=== PATIENT | female | born 1960 | race Two or more races ===

== ENCOUNTER 2021-11-23 15:44 | Outpatient (CLI) | payer OTHER, SELFPAY ==
--- NOTE | ~2021-11-23 | CT_ITS ---
EXAMINATION: CTA chest PE protocol DATE: 11/23/2021 17:09 INDICATION: Palpitations. Elevated d-dimer. TECHNIQUE: Computed tomography (CT) pulmonary angiogram of the chest was performed with 200 mL Omnipa que-350 intravenous contrast. Additional 3D reconstructions utilizing coronal maximum intensity proje ction (MIP) were performed. Automated exposure control and iterative reconstruction technique were em ployed. The dose-length product was 199.77 mGy-cm. COMPARISON: CT abdomen and pelvis dated 04/02/2009 FINDINGS: Excellent contrast opacification of the pulmonary arteries. There is mild streak artifact from dense contrast in the superior vena cava and right atrium. No significant motion artifact yielding diagnost ic quality study which demonstrates no pulmonary embolism. 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 No pneumonia, pulmonary ed moriah, pleural effusion or pneumothorax. Heart size is normal. No pericardial effusion. Thoracic aorta is normal in caliber with no dissection. No pathologically enlarged thoracic lymphadenopathy. Small s liding-type hiatal hernia. Visualized upper abdomen is otherwise unremarkable. Mild to moderate thora cic and lower cervical spondylosis. IMPRESSION: 1. No pulmonary embolism or other acute cardiopulmonary disease. Reviewed, dictated and finalized at location A.
[2021-11-23 16:45] LABS: Estimated Glomerular Filt Rate > 60
== END 2021-11-23 15:45 | disposition home or self-care (01) ==
PROVIDERS: PCP Internal Medicine; Visit Provider Internal Medicine
DX: I48.91 Unspecified atrial fibrillation (principal); R79.89 Other specified abnormal findings of blood chemistry
CPT/HCPCS: 71275; Q9967

== ENCOUNTER 2021-12-05 09:11 | Outpatient (CLI) | payer OTHER, SELFPAY ==
--- NOTE | ~2021-12-05 | US_ITS ---
EXAMINATION: US venous doppler [facility] DATE: 12/05/2021 09:43 INDICATION: Lower limb swelling TECHNIQUE: Grayscale ultrasound images without and with compression and Doppler ultrasound images of the bilateral lower extremity veins were obtained. COMPARISON: None. FINDINGS: The visualized portions of right common femoral vein, profunda (deep) femoral vein, femoral vein, pop liteal vein, posterior tibial veins, peroneal veins and greater saphenous vein outflow are patent. The visualized portions of left common femoral vein, profunda femoral vein, femoral vein, popliteal v ein, posterior tibial veins, peroneal veins and greater saphenous vein outflow are patent. IMPRESSION: 1. No deep venous thrombosis in either lower limb. Reviewed, dictated and finalized at location B.
== END 2021-12-05 09:12 | disposition home or self-care (01) ==
LOC: ANHIMG 09:19
PROVIDERS: PCP Internal Medicine; Visit Provider Internal Medicine
DX: R79.89 Other specified abnormal findings of blood chemistry (principal); I48.91 Unspecified atrial fibrillation
CPT/HCPCS: 93970

== ENCOUNTER 2021-12-29 08:49 | Emergency (ER) | payer OTHER, SELFPAY ==
[2021-12-29] VITALS (17 sets, daily range): BP systolic 100–145; BP diastolic 60–79; PULSE 46–104; RESP 12–20; TEMP 36.6; O2SAT 95–100
--- NOTE | ~2021-12-29 | XR_ITS ---
EXAMINATION: XR chest 2V 12/29/2021 10:29 INDICATION: Chest palpitations. History of atrial fibrillation. PROCEDURE: 2 view chest COMPARISON: No prior studies for comparison. FINDINGS: The lungs are clear. The cardiomediastinal silhouette is within normal limits. There are no pleural effusions. There is no pneumothorax suspected. IMPRESSION: 1: NO ACUTE CARDIOPULMONARY DISEASE. Reviewed, dictated and finalized at location A.
--- NOTE | 2021-12-29 08:48 | ECG_ITS ---
Measurements Intervals [place] Rate: 63 P: 51 TX: 113 QRS: 45 QRSD: 80 T: 43 QT: 384 QTc: 396 Interpretive Statements SINUS RHYTHM WITH SHORT TX INTERVAL BORDERLINE ECG NO PREVIOUS ECG AVAILABLE FOR COMPARISON Electronically Signed On 12-29-2021 8:58:35 CDT by Ze Martinez D.O.
--- NOTE | 2021-12-29 08:49 | ED.ARRPALP ---
HPI - Arrhythmia/Palpitations General Chief Complaint: Arrhythmia/Palpitations Stated Complaint: palpitations and dizziness Source: patient Mode of arrival: EMS Limitations: no limitations History of Present Illness HPI narrative: Patient is a 61-year-old female with a history of breast cancer, osteoporosis, paroxysmal atrial fibrillation on chronic anticoagulation, presenting to the emergency department for evaluation of palpitations, lightheadedness and dizziness which is resolved at the time of assessment. Patient states that she awakened normally this morning and did her morning exercising. Patient then was preparing breakfast when she began to experience palpitations with associated lightheadedness and dizziness. Patient states that she felt like she may pass out but did not lose consciousness. EMS was contacted, patient was transported to our facility. On telemetry, patient was in normal sinus rhythm at the time of their arrival. Patient states that her palpitations lasted approximately 10 to 15 minutes. Patient denied any associated chest pain, shortness of breath. No focal weakness or numbness. Patient states she was seen at [facility] for atrial fibrillation with rapid ventricular rate, or decision was made to place the patient on chronic anticoagulation and metoprolol. Patient was then seen by her primary care physician and had an echocardiogram done which was normal. Patient was seen by Dr. Sanchez with cardiology and wore a 30-day event monitor which is notable for paroxysmal atrial fibrillation as well as episodic SVT. Patient has not taken her morning Metoprolol. No missed doses of her anticoagulation. Related Data Home Medications Medication Instructions Recorded Confirmed omega-3 fatty acids 1,000 mg 1,000 mg PO DAILY 03/03/20 11/24/21 capsule (Fish Oil Concentrate) sitagliptin phosphate 100 mg 100 mg PO DAILY 04/13/21 11/24/21 tablet (Januvia) famotidine 20 mg tablet (Pepcid AC) 20 mg PO DAILY 11/23/21 11/24/21 apixaban 5 mg tablet (Eliquis) 5 mg PO BID 11/24/21 11/24/21 Allergies Allergy/AdvReac Type Severity Reaction Status Date / Time No Known Allergies Allergy Mild Verified 11/23/21 14:07 Review of Systems Review of Systems: CONSTITUTIONAL: Denies fever, chills, or sweats. EYES: Denies visual changes, redness, or discharge. ENT: Denies rhinorrhea, congestion, sore throat, or otalgia. CARDIOVASCULAR: Denies chest pain,reports palpitations (resolved) RESPIRATORY: Denies cough or dyspnea. GASTROINTESTINAL: Denies abdominal pain, nausea, vomiting, or diarrhea. GENITOURINARY: Denies dysuria or hematuria. SKIN: Denies rash or itching. MUSCULOSKELETAL: Denies back pain, joint pain, or myalgia. NEUROLOGIC: Denies headache, numbness, or weakness. 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 EYES: PERRLA and EOMI. ENT: Nares clear, no rhinorrhea or epistaxis. Mucous membranes moist. NECK: Supple. CHEST: No respiratory distress, breathing even and non labored HEART: Regular rate, sinus rhythm ABDOM
[2021-12-29 09:21] LABS: Basophils Absolute Auto 0.1 K/mm3 (0.0-0.1); Basophils Percent Auto 0.8 % (0.2-1.2); Eosinophils Absolute Auto 0.1 K/mm3 (0-0.3); Eosinophils Percent Auto 1.4 % (0-4.4); Hemoglobin 11.9 g/dL (12.0-15.0); Immature Granulocyte Absolute 0.02 K/mm3 (0.00-0.031); Immature Granulocyte Percent A 0.3 % (0-0.5); Lymphocytes Absolute Auto 1.67 K/mm3 (0.9-3.2); Lymphocytes Percent Auto 28.2 % (18.3-44.2); Mean Corpuscular HGB Conc 31.3 g/dl (32-36); Mean Corpuscular Hemoglobin 25.4 pg (26-34); Mean Corpuscular Volume 81.2 fl (80-100); Mean Platelet Volume 11.9 fl (7.4-10.4); Monocytes Absolute Auto 0.4 K/mm3 (0.1-0.6); Monocytes Percent Auto 6.4 % (2.6-8.5); Neutrophils Absolute Auto 3.7 K/mm3 (1.3-6.7); Neutrophils Percent Auto 62.9 % (45.5-73.1); Platelet Count Result 196 k/mm3 (150-375); Red Blood Count 4.68 M/mm3 (4.2-5.4); Red Cell Distribution Width 14.4 % (11.5-14.5); White Blood Count 5.9 K/mm3 (4.5-10.0)
[2021-12-29] MEDS: SODIUM CHLORIDE 0.9% IV 1,000 ML 999 ML IV CONT (09:31)
[2021-12-29 09:33] LABS: INR 1.2; Prothrombin Time 14.6 Seconds (11.1-14.7)
[2021-12-29 09:34] LABS: Partial Thromboplastin Time 33.4 SECONDS (22.3-36.8); Phosphorus 3.1 mg/dL (2.5-4.5)
[2021-12-29] MEDS: METOPROLOL TARTRATE 50 MG TAB 25 MG PO (09:40)
--- NOTE | 2021-12-29 11:08 | PC.NURSE ---
DR. BARTON MADE AWARE OF PT HEART RATE IN THE LOW 50'S AFTER METOPROLOL. PT REMAINS ASYMPTOMATIC.
--- NOTE | 2021-12-29 11:11 | PC.NURSE ---
Lab notified of need to add on TSH, Troponin, and BMP to lab already drawn and in lab.
[2021-12-29 11:27] LABS: Anion Gap 10 mmol/L (8-16); Blood Urea Nitrogen 11 mg/dL (7-17); Calcium 8.6 mg/dL (8.4-10.2); Carbon Dioxide 24 mmol/L (22-30); Chloride 105 mmol/L (98-107); Estimated CRCL calculation 66 ml/min; Estimated Glomerular Filt Rate > 60; Glucose 96 mg/dL (65-110); Potassium 3.8 mmol/L (3.4-5.0); Sodium 139 mmol/L (137-145)
[2021-12-29 11:39] LABS: Troponin I < 0.012 ng/mL (0.000-0.034)
[2021-12-29 12:27] LABS: Troponin I < 0.012 ng/mL (0.000-0.034)
--- NOTE | 2021-12-29 12:40 | PC.NURSE ---
Pt. ambulated with a steady gait with no complaints. ERP aware
--- NOTE | 2022-01-03 15:57 | WPDHOLTEREM ---
Holter/Event Monitor Holter/Event Monitor Date of procedure: 12/29/21 Holter/Event Procedure: 48 Hr Holter Monitor Indications: Palpitations Conclusion: 1. 48 hour holter monitor on 12/29/21. 2. Predominant rhythm is sinus rhythm. HR range 42-169 bpm; average HR 60 bpm. 3. There are 474 premature supraventricular complexes and 174 supraventricular couplets. There are 365 episodes of atrial fibrillation, fastest at 188 bpm and longest lasting 35 beats. 4. There are 12 premature ventricular complexes. No ventricular tachycardia. 5. No sinoatrial or atrioventricular blocks. No significant pauses greater than 2 seconds. 6. Patient reports an episode of symptoms of palpitations and dizziness which demonstrate sinus rhythm at 71 bpm.
== END 2021-12-29 12:54 | disposition home or self-care (01) ==
PROVIDERS: Emergency Provider Emergency Medicine; PCP Internal Medicine
DX: R00.2 Palpitations (principal); I48.0 Paroxysmal atrial fibrillation; Z85.3 Personal history of malignant neoplasm of breast; Z79.01 Long term (current) use of anticoagulants
CPT/HCPCS: 36415; 71046; 80048; 83735; 84100; 84443; 84484; 85025; 85610; 85730; 93005; 93225; 93226; 96360; 99284; A9270; J7030